=== PATIENT | female | born 1995 | race African-American/Black ===

== ENCOUNTER 2016-09-26 08:43 | Emergency (ER) | payer SELFPAY ==
--- NOTE | ~2016-09-26 | CR20 ---
[facility] A Service of [facility] [place] RADIOLOGY TEXT RESULTS PATIENT: JI SCOTT LOCATION: [facility] : 95 UNIT #: [id number] AGE: [address]: Lizzeth Nieves SEX: F ORDER DR: [id number] [facility] [address] [place], [place] [address] [id number] MR#: [id number] Acc #: [id number] NAME: JI SCOTT : 1995 SEX: F STUDY DATE/TIME: 09/26/2016 9:08 UNIT: CFTX ROOM: STUDY DESCRIPTION: CR Ankle Min 3 Views Lt Attending Physician: Lizzeth Nieves Pa-C Ordering Physician: Ed Patrick Peterson M.D. Primary Care Physician: Primary Care Physician No MEDICAL IMAGING REPORT This report is preliminary unless electronic signature is present EXAM Left ankle HISTORY Pain and swelling both laterally and medially after falling down steps yesterday. TECHNIQUE 2 views of the ankle were obtained. FINDINGS AP, lateral, and oblique projections of the ankle show satisfactory integrity of the joint mortise with a smooth articular surface. There is no identifiable fracture, dislocation, or radiopaque foreign body. IMPRESSION Normal ankle. Dictated by... Geovany Graham M.D. THIS IS AN ELECTRONICALLY VERIFIED REPORT Geovany Graham M.D. at 09/27/2016 10:30 AM RLF/jorge TD: 09/26/2016 11:48 JOB #: [id number] MEDICAL IMAGING REPORT Page 1 of 1 COPY
== END 2016-09-26 09:50 | disposition home or self-care (01) ==
LOC: CED 08:43 → CFTX 08:43 → CED 09:21 → CFTX 09:21
DX: S93.402A Sprain of unspecified ligament of left ankle, initial encounter (principal); X50.1XXA Overexertion from prolonged static or awkward postures, initial encounter; Y93.02 Activity, running; Y92.69 Other specified industrial and construction area as the place of occurrence of the external cause; Y99.0 Civilian activity done for income or pay
CPT/HCPCS: 29540; 73610; 99283